=== PATIENT | female | born 1945 | race Caucasian/White ===

== ENCOUNTER 2021-12-02 11:47 | Emergency (ER) | payer MEDICARE, BC, SELFPAY ==
[2021-12-02] VITALS (19 sets, daily range): BP systolic 135–165; BP diastolic 58–95; PULSE 35–56; RESP 12–31; TEMP 37.6; O2SAT 95–100; BMI 35.5
[2021-12-02] MEDS: ATROPINE 1 MG/10 ML SYRINGE 0.5 MG IVP (12:10)
[2021-12-02 12:26] LABS: Basophils Absolute Auto 0.04 K/uL (0.00-0.30); Basophils Percent Auto 0.4 % (0.0-3.0); Eosinophils Percent Auto 3.1 % (0.0-7.0); Hematocrit 39.7 % (33.0-51.0); Hemoglobin* 12.8 gm/dL (12.0-16.0); Immature Granulocytes Abs Auto 0.02 K/uL (0.00-0.30); Lymphocytes Percent Auto 22.8 % (20-44); Mean Corpuscular HGB Conc 32 gm/dL (32-36); Mean Corpuscular Hemoglobin 32 pg (26-34); Mean Corpuscular Volume 99 fL (80-100); Monocytes Percent Auto 6.5 % (0.0-11.0); Neutrophils Absolute Auto 6.48 K/uL (1.7-7.0); Platelet Count* 289 K/uL (140-440); RDW Coefficient of Variation % 13.9 % (11.5-15.5); White Blood Count* 9.67 K/uL (4.50-11.00)
[2021-12-02 12:29] LABS: Troponin, Point-of-Care* 0.01 ng/ml (0.01-0.04)
[2021-12-02 12:41] LABS: Chloride* 98 mmol/L (96-114); Sodium* 133 mmol/L (135-149)
[2021-12-02 12:42] LABS: Potassium* 4.9 mmol/L (3.6-5.1); Slide Review Reflex No
[2021-12-02 12:44] LABS: Carbon Dioxide* 28 mmol/L (20-32); Creatinine* 1.5 mg/dL (0.5-1.5); Est. Creatinine Clearance* 28.94; Estimated Glomerular Filt Rate 35 ml/min
[2021-12-02 12:45] LABS: Blood Urea Nitrogen* 30 mg/dL (7-30); Calcium* 9.2 mg/dL (8.4-10.6); Glucose* 123 mg/dL (60-115)
[2021-12-02 12:53] LABS: INR 2.27 (0.91-1.10); Prothrombin Time 25.4 Seconds
[2021-12-02 12:54] LABS: NT Pro B Type NatriureticPept* 2510 PG/mL (0-450)
[2021-12-02 12:59] LABS: Troponin I* 0.08 ng/mL (0.01-0.04)
[2021-12-02] MEDS: ASPIRIN 81 MG TAB.CHEW 324 MG PO (13:19)
[2021-12-02 13:26] LABS: PCR FLU A Negative PCR FLU A (Negative); PCR FLU B Negative PCR FLU B (Negative)
[2021-12-02 13:42] LABS: SARS PCR* Negative SARS-CoV-2 (Negative)
--- NOTE | 2021-12-02 14:07 | ED.GENADULT ---
HPI - General Adult General Chief complaint: Chest Pain Stated complaint: 40 pulse, lightheaded Time Seen by Provider: 12/02/21 12:02 Source: patient Mode of arrival: ambulatory Limitations: no limitations History of Present Illness HPI narrative: 76-year-old female brought in today after she was found to have a pulse of 38 in the clinic. Patient states that for the last couple of days she has felt lightheaded and a little short of breath in the evenings but wakes up in the morning feeling fine. She states that it takes her a little bit more than her usual amount of energy to get going in the morning we once she gets going she is feels like she is back to her normal self. However today she woke up she still felt a little bit lightheaded and slightly short of breath. She denies any chest pain. She denies any recent illness. She denies fevers or chills. No nausea or vomiting. No diaphoresis. No weakness. Patient's past medical history significant for paroxysmal atrial fibrillation, hypertension, diabetes type 2, diastolic heart failure, obstructive sleep apnea. She is on Toprol XL , Coumadin and flecainide for her AFib. Related Data Home Medications Medication Instructions Recorded Confirmed flecainide 50 mg tablet 50 mg PO Q12H 12/02/21 12/02/21 gabapentin 100 mg capsule 200 mg PO .PM 12/02/21 12/02/21 metformin 500 mg tablet 500 mg PO DAILY 12/02/21 12/02/21 metoprolol succinate 100 mg 100 mg PO DAILY 12/02/21 12/02/21 tablet,extended release 24 hr omeprazole 20 mg capsule,delayed 20 mg PO BID 12/02/21 12/02/21 release pravastatin 80 mg tablet 80 mg PO DAILY 12/02/21 12/02/21 prednisone 5 mg tablet 7.5 mg PO DAILY 12/02/21 12/02/21 spironolactone 25 mg tablet 25 mg PO DAILY 12/02/21 12/02/21 warfarin 2.5 mg tablet 2.5 mg PO .T, Th, Sa, Long 12/02/21 12/02/21 warfarin 3 mg tablet 3 mg PO .M, W, F 12/02/21 12/02/21 Allergies Allergy/AdvReac Type Severity Reaction Status Date / Time allopurinol Allergy Unknown Verified 12/02/21 12:30 Sulfa (Sulfonamide Allergy Unknown Verified 12/02/21 12:30 Antibiotics) Review of Systems Status of ROS: Reports: 10 or more systems reviewed and unremarkable except as noted in History and below [facility] Social History Smoking Status: Former smoker Do you use any of these nicotine containing products: None Second hand tobacco smoke exposure: No How often do you have a drink containing alcohol: 4 or more times a week How many standard drinks containing alcohol do you have on a typical day: 1 or 2 How often do you have six or more drinks on one occasion: Never AUDIT-C Alcohol total score: 4 Non-prescribed substance use: denies use Exam Narrative: Exam Narrative: Well-nourished well-developed patient in no acute distress. Alert and oriented. Answers questions appropriately. Mood and affect are appropriate. Thoughts are goal oriented and rational. No tangential or magical thinking noted. Patient speaks in full sentences without needing to catch their breath. Patient is markedly bradycardic. Blood pressure is normal. Speech is not slurred or pressured. She is not sleepy. HEENT: Normocephalic atraumatic. Pupils are equally round reactive to light. Extraocular muscles are intact. Conjunctivae are moist without any icterus noted. Moist mucous membranes. Posterior pharynx is normal. Neck is soft without any lymphadenopathy or thyromegaly. No masses are appreciated. Cardiovascular: Heart is regular rate and rhythm S1 and S2 are present without any murmurs. Lungs: Clear to auscultation bilaterally no wheezes rhonchi or rales are appreciated. Patient takes deep breaths without any discomfort. Abdomen: Soft and nontender nondistended with normal bowel sounds. Extremities: Bilateral lower extremities are without edema. Normal DP and PT pulses. Skin: Well perfused without any obvious rashes. Const: Vital Signs, click to edit/add: Vital Signs - 24 hr 12/02/21 11:55 12/02/21 11:57 12/02/21 12:07 Temperature 99.6 F Pulse Rate [Right] 38 L 39 L 35 L Respiratory Rate 19 Blood Pressure [Le ft Upper Arm] 135/62 149/95 H Pulse Oximetry 97 97 95 Oxygen Delivery Me thod Room Air Room Air Room Air 12/02/21 12:20 12/02/21 12:30 12/02/21 12:45 Temperature Pulse Rate [Right] 45 L 41 L 40 L Respiratory Rate 16 31 H 19 Blood Pressure [Le ft Upper Arm] 138/63 141/62 H 141/68 H Pulse Oximetry 95 96 95 Oxygen Delivery Me thod Room Air Room Air Room Air 12/02/21 13:00 12/02/21 13:30 12/02/21 13:45 Temperature Pulse Rate [Right] 54 L 52 L 51 L Respiratory Rate 19 18 16 Blood Pressure [Le ft Upper Arm] 153/72 H 151/67 H 153/64 H Pulse Oximetry 97 97 98 Oxygen Delivery Me thod Room Air Room Air Room Air 12/02/21 13:15 12/02/21 14:00 12/02/21 14:15 Temperature Pulse Rate [Right] 53 L 51 L 56 L Respiratory Rate 21 16 20 Blood Pressure [Le ft Upper Arm] 156/67 H 157/70 H 152/89 H Pulse Oximetry 99 98 98 Oxygen Delivery Me thod Room Air Room Air Room Air Course Course Hospital Course: EKG was done right away which showed sinus bradycardia with an occasional fusion complex. Pacers were placed on the patient. IV was started and patient received 0.5 mg of atropine her pulse went up into the upper 40s. Repeat EKG showed bradycardia with a pulse of 48, and a junctional rhythm without obvious P-waves. She thought she was feeling a little bit better. Her point of care troponin was normal at 0.01 however her troponin I came back elevated at 0.08. Therefore patient received aspirin. Follow-up troponin came back normal at 0.01. I did speak to Dr. Haskins, cardiology at [facility], who recommended the patient be monitored until the Toprol XL and flecainide are out of her system. She did accept the patient for admission. Patient waited here while being monitored for approximately 4 and half hours while waiting for a bed and then was transferred without incident. Vital Signs Vital signs: Initial Vital Signs Temperature 99.6 F 12/02/21 11:55 Temperature Source Temporal Artery Scan 12/02/21 11:55 Pulse Rate 38 L 12/02/21 11:55 Blood Pressure Position Supine 12/02/21 11:55 Pulse Oximetry 97 12/02/21 11:55 Oxygen Delivery Method 12/02/21 11:55 Vital Signs Temperature 99.6 F 12/02/21 11:55 Pulse Rate 38 L 12/02/21 11:55 Pulse Oximetry 97 12/02/21 11:55 Oxygen Delivery Method 12/02/21 11:55 Temperature 99.6 F 12/02/21 11:55 Pulse Rate 56 L 12/02/21 14:15 Respiratory Rate 20 12/02/21 14:15 Blood Pressure 152/89 H 12/02/21 14:15 Pulse Oximetry 98 12/02/21 14:15 Oxygen Delivery Method 12/02/21 14:15 Medical Decision Making MDM Narrative Medical decision making narrative: Bradycardia. Mildly symptomatic upon presentation. Patient transferred to [facility]. Medical Records Medical records reviewed: Yes I reviewed the patient's medical records Lab Data Lab results reviewed: Yes I reviewed the patient's lab results Labs: Lab Results 12/02/21 12/02/21 12/02/21 Range/Units 12:09 12:09 12:09 WBC 9.67 (4.50-11.00) K/uL RBC 4.00 (4.00-5.20) m/uL Hgb 12.8 (12.0-16.0) gm/dL Hct 39.7 (33.0-51.0) % MCV 99 (80-100) fL MCH 32 (26-34) pg MCHC 32 (32-36) gm/dL RDW Coeff of Dom 13.9 (11.5-15.5) % Plt Count 289 (140-440) K/uL Neut % (Auto) 67.0 (42.0-72.0) % Lymph % (Auto) 22.8 (20-44) % Rice % (Auto) 6.5 (0.0-11.0) % Eos % (Auto) 3.1 (0.0-7.0) % Baso % (Auto) 0.4 (0.0-3.0) % Neut # (Auto) 6.48 (1.7-7.0) K/uL Lymph # (Auto) 2.20 (0.90-2.90) K/uL Rice # (Auto) 0.60 (0.00-0.90) K/UL Eos # (Auto) 0.30 (0.00-0.50) K/uL Baso # (Auto) 0.04 (0.00-0.30) K/uL Abs Immat Gran (auto) 0.02 (0.00-0.30) K/uL INR 2.27 H (0.91-1.10) Sodium 133 L (135-149) mmol/L Potassium 4.9 (3.6-5.1) mmol/L Chloride 98 (96-114) mmol/L Carbon Dioxide 28 (20-32) mmol/L BUN 30 (7-30) mg/dL Creatinine 1.5 (0.5-1.5) mg/dL Estimated Creat Clear 28.94 Estimated GFR 35 ml/min Glucose 123 H (60-115) mg/dL Calcium 9.2 (8.4-10.6) mg/dL Troponin I 0.08 H* (0.01-0.04) ng/mL NT-Pro-B Natriuret Pep 2510 H (0-450) PG/mL TSH (0.270-4.20) uIU/mL SARS-CoV-2 (PCR) (Negative) Influenza Type A (PCR) (Negative) Influenza Type B (PCR) (Negative) POC Troponin I (0.01-0.04) ng/ml 12/02/21 12/02/21 12/02/21 Range/Units 12:09 12:10 12:19 WBC (4.50-11.00) K/uL RBC (4.00-5.20) m/uL Hgb (12.0-16.0) gm/dL Hct (33.0-51.0) % MCV (80-100) fL MCH (26-34) pg MCHC (32-36) gm/dL RDW Coeff of Dom (11.5-15.5) % Plt Count (140-440) K/uL Neut % (Auto) (42.0-72.0) % Lymph % (Auto) (20-44) % Rice % (Auto) (0.0-11.0) % Eos % (Auto) (0.0-7.0) % Baso % (Auto) (0.0-3.0) % Neut # (Auto) (1.7-7.0) K/uL Lymph # (Auto) (0.90-2.90) K/uL Rice # (Auto) (0.00-0.90) K/UL Eos # (Auto) (0.00-0.50) K/uL Baso # (Auto) (0.00-0.30) K/uL Abs Immat Gran (auto) (0.00-0.30) K/uL INR (0.91-1.10) Sodium (135-149) mmol/L Potassium (3.6-5.1) mmol/L Chloride (96-114) mmol/L Carbon Dioxide (20-32) mmol/L BUN (7-30) mg/dL Creatinine (0.5-1.5) mg/dL Estimated Creat Clear Estimated GFR ml/min Glucose (60-115) mg/dL Calcium (8.4-10.6) mg/dL Troponin I (0.01-0.04) ng/mL NT-Pro-B Natriuret Pep (0-450) PG/mL TSH 1.760 (0.270-4.20) uIU/mL SARS-CoV-2 (PCR) Negative SARS-CoV-2 (Negative) Influenza Type A (PCR) Negative PCR FLU A (Negative) Influenza Type B (PCR) Negative PCR FLU B (Negative) POC Troponin I 0.01 (0.01-0.04) ng/ml 12/02/21 Range/Units 13:55 WBC (4.50-11.00) K/uL RBC (4.00-5.20) m/uL Hgb (12.0-16.0) gm/dL Hct (33.0-51.0) % MCV (80-100) fL MCH (26-34) pg MCHC (32-36) gm/dL RDW Coeff of Dom (11.5-15.5) % Plt Count (140-440) K/uL Neut % (Auto) (42.0-72.0) % Lymph % (Auto) (20-44) % Rice % (Auto) (0.0-11.0) % Eos % (Auto) (0.0-7.0) % Baso % (Auto) (0.0-3.0) % Neut # (Auto) (1.7-7.0) K/uL Lymph # (Auto) (0.90-2.90) K/uL Rice # (Auto) (0.00-0.90) K/UL Eos # (Auto) (0.00-0.50) K/uL Baso # (Auto) (0.00-0.30) K/uL Abs Immat Gran (auto) (0.00-0.30) K/uL INR (0.91-1.10) Sodium (135-149) mmol/L Potassium (3.6-5.1) mmol/L Chloride (96-114) mmol/L Carbon Dioxide (20-32) mmol/L BUN (7-30) mg/dL Creatinine (0.5-1.5) mg/dL Estimated Creat Clear Estimated GFR ml/min Glucose (60-115) mg/dL Calcium (8.4-10.6) mg/dL Troponin I < 0.01 L (0.01-0.04) ng/mL NT-Pro-B Natriuret Pep (0-450) PG/mL TSH (0.270-4.20) uIU/mL SARS-CoV-2 (PCR) (Negative) Influenza Type A (PCR) (Negative) Influenza Type B (PCR) (Negative) POC Troponin I (0.01-0.04) ng/ml ECG Data Attestation: I personally reviewed and interpreted this ECG as follows: (Sinus bradycardia with junctional rhythm.) Critical Care Time Critical Care Time Total Critical Care Time in Minutes: 90 Discharge Plan Discharge Clinical Impression: Bradycardia Patient Disposition: Xfer [facility] Discharge Location: [facility] Condition: Stable Prescriptions: No Action flecainide 50 mg tablet 50 mg PO Q12H Label Comments: TAKE ONE TABLET BY MOUTH EVERY TWELVE HOURS gabapentin 100 mg capsule 200 mg PO .PM Label Comments: TAKE TWO CAPSULE BY MOUTH DAILY AT BEDTIME metformin 500 mg tablet 500 mg PO DAILY Label Comments: TAKE ONE TABLET BY MOUTH ONE TIME DAILY with evening meal metoprolol succinate 100 mg tablet extended release 24 hr 100 mg PO DAILY Label Comments: TAKE ONE TABLET BY MOUTH ONE TIME DAILY omeprazole 20 mg capsule,delayed release(DR/EC) 20 mg PO BID Label Comments: TAKE ONE CAPSULE BY MOUTH ONE TIME DAILY BEFORE MEALS prednisone 5 mg tablet 7.5 mg PO DAILY Label Comments: TAKE ONE TABLET BY MOUTH ONE TIME DAILY WITH FOOD spironolactone 25 mg tablet 25 mg PO DAILY Label Comments: TAKE ONE TABLET BY MOUTH EVERY DAY IN THE MORNING. pravastatin 80 mg tablet 80 mg PO DAILY Label Comments: TAKE ONE TABLET (80 MG) BY MOUTH ONE TIME DAILY AT BEDTIME warfarin 3 mg tablet 3 mg PO .M, W, F Label Comments: take 1 tablet by mouth once daily on mondays, wednesdays, and fridays. take 2.5 mg tablets all other days or as directed. warfarin 2.5 mg tablet 2.5 mg PO ., , , Long Label Comments: take 1 tablet by mouth once daily on tuesdays, , saturdays, and sundays. take as instructed by nursing staff after inr monitoring. Follow Up/Referrals: Casi Kyle MD [Primary Care Provider] - Stand Alone Forms: [facility] Info Instructions
--- NOTE | 2021-12-02 14:25 | ED.NURSE ---
Report called to [facility] RN.
[2021-12-02 14:59] LABS: Troponin I* < 0.01 ng/mL (0.01-0.04)
== END 2021-12-02 16:20 | disposition short-term general hospital (02) ==
PROVIDERS: Emergency Provider Family Medicine; PCP Internal Medicine
DX: R00.1 Bradycardia, unspecified (principal)
CPT/HCPCS: 36415; 80048; 83880; 84443; 84484; 85025; 85610; 87502; 87635; 93005; 99285; 99291; A9270; J0461

== ENCOUNTER 2021-12-02 16:16 | Outpatient (CLI) | payer MEDICARE, BC, SELFPAY | END 2021-12-02 16:17 | disposition home or self-care (01) | LOC: AMB 12-16 08:31 | PROVIDERS: PCP Internal Medicine; Visit Provider Family Medicine | DX: I49.9 Cardiac arrhythmia, unspecified (principal); R03.0 Elevated blood-pressure reading, without diagnosis of hypertension; R42 Dizziness and giddiness | CPT/HCPCS: A0425; A0426 ==

== ENCOUNTER 2021-12-20 08:17 | Outpatient (CLI) | payer MEDICARE, BC, SELFPAY ==
--- NOTE | 2021-12-20 08:30 | CRLHL7_ITS ---
For Patients: As a result of the Century Cures Act, medical imaging exams and procedure reports are released immediately into your electronic medical record. You may view this report before your referring provider. If you have questions, please contact your health care provider. MYOCARDIAL PERFUSION SCAN - [facility] ??? [facility] CLINICAL HISTORY: 76-year-old female. Paroxysmal atrial fibrillation. CHF. Hyperlipidemia. Type 2 diabetes. Stage 3 chronic kidney disease. Former smoker. 220 pounds. TECHNIQUE: Resting SPECT and stress gated SPECT with wall motion and ejection fraction) Stress: Pharmacologic ??? Lexiscan (0.4 mg) IV Dose (Stress/Rest): 32.0 mCi/8.8 mCi Tc-99m Sestamibi IV Comparison: None FINDINGS: There is good uptake of activity by the left ventricle. No left ventricular enlargement is noted. There is mild soft tissue attenuation. No other significant fixed or reversible defects are identified. The gated images demonstrate a normal left ventricular ejection fraction of 63 percent. No regional wall motion abnormalities are identified. IMPRESSION: 1. There is no evidence of significant myocardial ischemia or infarction. 2. Normal left ventricular ejection fraction of 63 percent. This study was jointly reviewed by radiology and cardiology. DORON ESPOSITO M.D. [employer] [email or web address] JAY REINA M.D. [employer], Department of Cardiology PABLO/Dictated by: Doron Esposito MD @ 12/20/2021 1:40:00 PM (Electronically Signed)
--- NOTE | 2021-12-20 10:02 | PM.ST ---
Stress Test Note Date Time Seen by Provider: 10:20 Date Seen: 12/20/21 Date of test: 12/20/21 Providers Referring provider: Carmina Holloway Primary care provider: Casi Kyle Stress test physician: Daily Nazario Stress Test Note Stress test ordered: Lexiscan Indication for test: Paroxysmal atrial fibrillation Stress test medicine: Lexiscan Results discussion: Patient was consented on Lexiscan. She had minimal symptoms with medication fusion, slight flushing. She had a non walking Lexiscan protocol. There were no arrhythmias, no significant ischemic changes. Patient did have some hypertensive changes during the stress test without symptomatology. Impression: Subjectively negative, objectively negative EKG portion of this Lexiscan. Follow up suggested: She will have her post-stress images done and then discharge to home. She will wait from her ordering physician for formal report. The nuclear medicine images need to couple this for a full formal diagnostic test.
[2021-12-20] MEDS: REGADENOSON 0.4 MG/5 ML SYRINGE IVP (10:57)
[2021-12-20] MEDS: SODIUM CHLORIDE 0.9 % (FLUSH) 10 ML SYRINGE IVF (10:57)
== END 2021-12-20 08:18 | disposition home or self-care (01) ==
PROVIDERS: PCP Internal Medicine; Visit Provider Family Medicine
DX: I48.0 Paroxysmal atrial fibrillation (principal)
CPT/HCPCS: 78452; 93016; 93017; A9500; J2785

== ENCOUNTER 2022-01-01 21:14 | Outpatient (CLI) | payer MEDICARE, BC, SELFPAY | END 2022-01-01 21:15 | disposition home or self-care (01) | LOC: AMB 01-17 12:46 | PROVIDERS: PCP Internal Medicine; Visit Provider Family Medicine | DX: R55 Syncope and collapse (principal); I48.91 Unspecified atrial fibrillation; R42 Dizziness and giddiness | CPT/HCPCS: A0425; A0427 ==

== ENCOUNTER 2022-01-01 21:44 | Emergency (ER) | payer MEDICARE, BC, SELFPAY ==
[2022-01-01] VITALS (18 sets, daily range): BP systolic 100–159; BP diastolic 61–99; PULSE 99–168; RESP 18–27; TEMP 36.9; O2SAT 95–100
--- NOTE | 2022-01-01 21:46 | ED.GENADULT ---
HPI - General Adult General Time Seen by Provider: 21:46 Date Seen: 01/01/22 Chief complaint: Arrhythmia/Palpitations Stated complaint: Afib Time Seen by Provider: 01/01/22 21:46 Source: patient and EMS Mode of arrival: EMS Limitations: no limitations History of Present Illness HPI narrative: 76-year-old female who comes in today with palpitations. Patient was seen about a month ago with bradycardia and at that time had been on Toprol on flecainide, was transferred to [facility] where those medications were stopped. She has been doing well until a couple hours ago when she developed palpitations and chest tightness which she associates with her atrial fibrillation. She denies nausea, vomiting, new medications, other concerns. No shortness of breath or lightheadedness. Patient is on Coumadin, last INR was about a month ago when she was here in the emergency department. Related Data Home Medications Medication Instructions Recorded Confirmed flecainide 50 mg tablet 50 mg PO Q12H 12/02/21 12/02/21 gabapentin 100 mg capsule 200 mg PO .PM 12/02/21 12/02/21 metformin 500 mg tablet 500 mg PO DAILY 12/02/21 12/02/21 omeprazole 20 mg capsule,delayed 20 mg PO BID 12/02/21 12/02/21 release pravastatin 80 mg tablet 80 mg PO DAILY 12/02/21 12/02/21 prednisone 5 mg tablet 7.5 mg PO DAILY 12/02/21 12/02/21 spironolactone 25 mg tablet 25 mg PO DAILY 12/02/21 12/02/21 warfarin 2.5 mg tablet 2.5 mg PO .T, Th, Sa, Long 12/02/21 12/02/21 warfarin 3 mg tablet 3 mg PO .M, W, F 12/02/21 12/02/21 Previous Rx's Medication Instructions Recorded flecainide 50 mg tablet 50 mg PO Q12H #60 tabs 01/02/22 metoprolol succinate 25 mg 12.5 mg PO DAILY #30 tabs 01/02/22 tablet,extended release 24 hr Allergies Allergy/AdvReac Type Severity Reaction Status Date / Time allopurinol Allergy Unknown Verified 12/02/21 12:30 Sulfa (Sulfonamide Allergy Unknown Verified 12/02/21 12:30 Antibiotics) Review of Systems Status of ROS: Reports: 10 or more systems reviewed and unremarkable except as noted in History and below [facility] Social History Smoking Status: Never smoker Do you use any of these nicotine containing products: None Second hand tobacco smoke exposure: No How often do you have a drink containing alcohol: 4 or more times a week How many standard drinks containing alcohol do you have on a typical day: 1 or 2 How often do you have six or more drinks on one occasion: Never AUDIT-C Alcohol total score: 4 Non-prescribed substance use: denies use Exam Narrative: Exam Narrative: General: Well-developed and well-nourished, no acute distress Head: Atraumatic and normocephalic Eyes: Pupils are equal reactive, extraocular motions intact, conjunctiva clear ENT: External nose and ears are normal, posterior pharynx without erythema or exudate Neck: No midline cervical tenderness, full spontaneous range of motion the neck, trachea midline, no adenopathy Heart: Tachycardic and irregular Lungs: Clear to auscultation bilaterally without wheezes or crackles Abdomen: Soft, nontender, nondistended with active bowel sounds Musculoskeletal: No tenderness, deformity, or edema Neurologic: Awake, alert, and oriented x3, bilateral lower extremity weakness which is chronic, cranial nerves intact as tested Psych: Mood and affect are appropriate Skin: No rashes Const: Vital Signs, click to edit/add: Vital Signs - 24 hr 01/01/22 21:55 01/01/22 22:05 01/01/22 22:13 Temperature 98.4 F Pulse Rate 153 H 143 H Pulse Rate [Pulse Oximeter] 168 H Respiratory Rate 27 H Blood Pressure 119/85 Blood Pressure [Le ft Upper Arm] 119/85 Pulse Oximetry 95 96 97 Oxygen Delivery Me thod Room Air 01/01/22 22:14 01/01/22 22:15 01/01/22 22:17 Temperature Pulse Rate 124 H 128 H 125 H Pulse Rate [Pulse Oximeter] Respiratory Rate Blood Pressure 120/66 100/61 Blood Pressure [Le ft Upper Arm] Pulse Oximetry 95 96 97 Oxygen Delivery Me thod 01/01/22 22:32 01/01/22 22:34 01/01/22 22:46 Temperature Pulse Rate 128 H 129 H 132 H Pulse Rate [Pulse Oximeter] Respiratory Rate Blood Pressure 103/79 Blood Pressure [Le ft Upper Arm] Pulse Oximetry 96 97 97 Oxygen Delivery Me thod 01/01/22 23:02 01/01/22 23:05 01/01/22 23:22 Temperature Pulse Rate 125 H 131 H 146 H Pulse Rate [Pulse Oximeter] Respiratory Rate Blood Pressure 110/99 H 159/97 H Blood Pressure [Le ft Upper Arm] Pulse Oximetry 97 97 100 Oxygen Delivery Me thod 01/01/22 23:25 01/01/22 23:37 01/01/22 23:51 Temperature Pulse Rate 135 H 125 H 147 H Pulse Rate [Pulse Oximeter] Respiratory Rate 18 Blood Pressure 145/77 H 150/91 H Blood Pressure [Le ft Upper Arm] Pulse Oximetry 98 97 100 Oxygen Delivery Me thod 01/01/22 23:53 01/01/22 23:54 01/01/22 23:57 Temperature Pulse Rate 108 H 106 H 99 Pulse Rate [Pulse Oximeter] Respiratory Rate 26 H 23 21 Blood Pressure 129/80 129/69 Blood Pressure [Le ft Upper Arm] Pulse Oximetry 97 100 100 Oxygen Delivery Me thod 01/02/22 00:07 01/02/22 00:12 01/02/22 00:17 Temperature Pulse Rate 93 88 99 Pulse Rate [Pulse Oximeter] Respiratory Rate 16 18 Blood Pressure 112/67 121/67 119/77 Blood Pressure [Le ft Upper Arm] Pulse Oximetry 98 98 99 Oxygen Delivery Me thod Course Course Hospital Course: Patient seen and examined, prior records are reviewed. Differential diagnosis includes but not limited to atrial fibrillation, atrial flutter, SVT, electrolyte disturbance, medication reaction. Patient presents with palpitations and chest tightness consistent with prior episodes of atrial fibrillation. Monitor confirms atrial fibrillation. Last INR was a month ago. If INR is therapeutic, patient is a candidate for electrical cardioversion. While labs are pending, patient will be given Cardizem IV. Reevaluation(s) Reevaluation #1: INR is 2.96, remaining labs are reassuring. Consent for sedation and cardioversion signed. Time: 23:15 Reevaluation #2: Successful electrical cardioversion. Patient is maintaining sinus rhythm, waiting for call back from cardiology to discuss further management. Time: 00:22 Reevaluation #3: Care discussed with Dr. King of [facility] who recommends restarting flecainide 50 mg twice a day and metoprolol 25 mg daily. Patient has follow-up with Cardiology in 5 days. Time: 00:35 Vital Signs Vital signs: Initial Vital Signs Temperature 98.4 F 01/01/22 21:55 Temperature Source Oral 01/01/22 21:55 Pulse Rate 168 H 01/01/22 21:55 Respiratory Rate 27 H 01/01/22 21:55 Blood Pressure 119/85 01/01/22 21:55 Blood Pressure Mean 96 01/01/22 21:55 Blood Pressure Position Supine 01/01/22 21:55 Pulse Oximetry 95 01/01/22 21:55 Oxygen Delivery Method 01/01/22 21:55 Vital Signs Temperature 98.4 F 01/01/22 21:55 Pulse Rate 168 H 01/01/22 21:55 Respiratory Rate 27 H 01/01/22 21:55 Blood Pressure 119/85 01/01/22 21:55 Pulse Oximetry 95 01/01/22 21:55 Oxygen Delivery Method 01/01/22 21:55 Temperature 98.4 F 01/01/22 21:55 Pulse Rate 99 01/02/22 00:17 Respiratory Rate 18 01/02/22 00:12 Blood Pressure 119/77 01/02/22 00:17 Pulse Oximetry 99 01/02/22 00:17 Oxygen Delivery Method 01/01/22 21:55 Medical Decision Making Medical Records Medical records reviewed: Yes I reviewed the patient's medical records Lab Data Lab results reviewed: Yes I reviewed the patient's lab results Labs: Lab Results 01/01/22 01/01/22 01/01/22 Range/Units 22:17 22:17 22:17 WBC 12.98 H (4.50-11.00) K/uL RBC 4.55 (4.00-5.20) m/uL Hgb 14.4 (12.0-16.0) gm/dL Hct 44.5 (33.0-51.0) % MCV 98 (80-100) fL MCH 32 (26-34) pg MCHC 32 (32-36) gm/dL RDW Coeff of Dom 13.2 (11.5-15.5) % Plt Count 303 (140-440) K/uL Neut % (Auto) 89.3 H (42.0-72.0) % Lymph % (Auto) 7.2 L (20-44) % [place] % (Auto) 2.4 (0.0-11.0) % Eos % (Auto) 0.5 (0.0-7.0) % Baso % (Auto) 0.2 (0.0-3.0) % Neut # (Auto) 11.60 H (1.7-7.0) K/uL Lymph # (Auto) 0.90 (0.90-2.90) K/uL [place] # (Auto) 0.30 (0.00-0.90) K/UL Eos # (Auto) 0.10 (0.00-0.50) K/uL Baso # (Auto) 0.00 (0.00-0.30) K/uL Abs Immat Gran (auto) 0.05 (0.00-0.30) K/uL INR 2.96 H (0.91-1.10) Sodium 136 (135-149) mmol/L Potassium 4.9 (3.6-5.1) mmol/L Chloride 103 (96-114) mmol/L Carbon Dioxide 22 (20-32) mmol/L BUN 20 (7-30) mg/dL Creatinine 1.2 (0.5-1.5) mg/dL Estimated GFR 46 ml/min Glucose 232 H (60-115) mg/dL Calcium 9.5 (8.4-10.6) mg/dL NT-Pro-B Natriuret Pep 813 H (0-450) PG/mL POC Troponin I (0.01-0.04) ng/ml 01/01/22 Range/Units 22:17 WBC (4.50-11.00) K/uL RBC (4.00-5.20) m/uL Hgb (12.0-16.0) gm/dL Hct (33.0-51.0) % MCV (80-100) fL MCH (26-34) pg MCHC (32-36) gm/dL RDW Coeff of Dom (11.5-15.5) % Plt Count (140-440) K/uL Neut % (Auto) (42.0-72.0) % Lymph % (Auto) (20-44) % [place] % (Auto) (0.0-11.0) % Eos % (Auto) (0.0-7.0) % Baso % (Auto) (0.0-3.0) % Neut # (Auto) (1.7-7.0) K/uL Lymph # (Auto) (0.90-2.90) K/uL [place] # (Auto) (0.00-0.90) K/UL Eos # (Auto) (0.00-0.50) K/uL Baso # (Auto) (0.00-0.30) K/uL Abs Immat Gran (auto) (0.00-0.30) K/uL INR (0.91-1.10) Sodium (135-149) mmol/L Potassium (3.6-5.1) mmol/L Chloride (96-114) mmol/L Carbon Dioxide (20-32) mmol/L BUN (7-30) mg/dL Creatinine (0.5-1.5) mg/dL Estimated GFR ml/min Glucose (60-115) mg/dL Calcium (8.4-10.6) mg/dL NT-Pro-B Natriuret Pep (0-450) PG/mL POC Troponin I 0.02 (0.01-0.04) ng/ml Imaging Data Chest x-ray: Attestation: I have reviewed the pertinent imaging results. My impression: Negative chest x-ray Radiologist's impression: No acute cardiopulmonary process identified ECG Data Attestation: I personally reviewed and interpreted this ECG as follows: Prior ECG tracings: available for review Interpretation: Atrial fibrillation with rapid ventricular response rate 172, QTC 416, normal axis, diffuse ST and T-wave changes. Compared to prior, rate is increased in atrial fibrillation has replaced junctional rhythm, diffuse ST changes are new. Repeat EKG performed at 11:55 a.m. demonstrates sinus tachycardia rate 103, nonspecific T-wave changes, no acute ST elevations or depressions, normal intervals, normal axis, MT 136, QTC 432. Compared to prior of earlier today, sinus rhythm has replaced atrial fibrillation and previously seen diffuse ST changes have resolved. Discharge Plan Discharge Clinical Impression: Anticoagulated on Coumadin, Atrial fibrillation with rapid ventricular response Patient Disposition: Home, Self-Care Condition: Stable Instructions: A-fib (Atrial Fibrillation) (ED) Additional Instructions: Restart flecainide 50 mg twice a day. Also start metoprolol 25 mg daily. Follow-up with cardiology as scheduled. Activity Level: No Restrictions Discharge Diet: Heart Healthy (2 gm sodium, low fat) Prescriptions: New flecainide 50 mg tablet 50 mg PO Q12H Qty: 60 0RF metoprolol succinate 25 mg tablet extended release 24 hr 12.5 mg PO DAILY Qty: 30 0RF Discontinued metoprolol succinate 100 mg tablet extended release 24 hr 100 mg PO DAILY Label Comments: TAKE ONE TABLET BY MOUTH ONE TIME DAILY No Action flecainide 50 mg tablet 50 mg PO Q12H Label Comments: TAKE ONE TABLET BY MOUTH EVERY TWELVE HOURS gabapentin 100 mg capsule 200 mg PO .PM Label Comments: TAKE TWO CAPSULE BY MOUTH DAILY AT BEDTIME metformin 500 mg tablet 500 mg PO DAILY Label Comments: TAKE ONE TABLET BY MOUTH ONE TIME DAILY with evening meal omeprazole 20 mg capsule,delayed release(DR/EC) 20 mg PO BID Label Comments: TAKE ONE CAPSULE BY MOUTH ONE TIME DAILY BEFORE MEALS prednisone 5 mg tablet 7.5 mg PO DAILY Label Comments: TAKE ONE TABLET BY MOUTH ONE TIME DAILY WITH FOOD spironolactone 25 mg tablet 25 mg PO DAILY Label Comments: TAKE ONE TABLET BY MOUTH EVERY DAY IN THE MORNING. pravastatin 80 mg tablet 80 mg PO DAILY Label Comments: TAKE ONE TABLET (80 MG) BY MOUTH ONE TIME DAILY AT BEDTIME warfarin 3 mg tablet 3 mg PO .M, W, F Label Comments: take 1 tablet by mouth once daily on mondays, wednesdays, and fridays. take 2.5 mg tablets all other days or as directed. warfarin 2.5 mg tablet 2.5 mg PO ., , , Long Label Comments: take 1 tablet by mouth once daily on tuesdays, , saturdays, and sundays. take as instructed by nursing staff after inr monitoring. Follow Up/Referrals: Casi Kyle MD [Primary Care Provider] - Stand Alone Forms: [facility] Info Instructions Procedures Procedural Sedation Pre procedure diagnosis: Afib with RVR Post procedure diagnosis: Same Written consent by: patient Verification/time out: correct patient, correct site, correct procedure and time out performed Name of person perfmorming the procedure: Jeffy Abrams Sedation provider same as procedural provider: No Indication: other (electrical cardioversion) ASA Class: II Time of Last PO Intake: 16:00 Mallampati classification: III. soft palate and base of uvula visible Preparation: cardiac monitor technician applied, pulse oximeter, capnometry used, supplemental O2 applied, reversal agents at bedside, suction/airway equipment at bedside and IV secured Additional Procedures Procedure name: Electrical cardioversion Pre procedure diagnosis: Afib with RVR Post procedure diagnosis: Same Written consent by: patient Site marking: not applicable Verification/time out: correct patient, correct procedure and time out performed Specimen sent: No Conclusion: patient tolerated procedure Additional comments: Risks and benefits discussed with patient, consent signed. Procedural sedation per anesthsia. Synchronized shock at 100J delivered with conversion to sinus rhythm. Patient tolerated procedure well and recovered from anesthesia without incident.
--- NOTE | 2022-01-01 22:00 | CRLHL7_ITS ---
For Patients: As a result of the Century Cures Act, medical imaging exams and procedure reports are released immediately into your electronic medical record. You may view this report before your referring provider. If you have questions, please contact your health care provider. INDICATION: Palpitations. TECHNIQUE: AP portable chest. COMPARISON: Two-view chest March 13, 2017. FINDINGS: Clear lungs. Normal heart size and pulmonary vascularity. Normal included skeleton. Resolution of the minimal pleural effusions described previously. IMPRESSION: No acute cardiopulmonary process identified. Dictated by Daniel Goodson MD @ 01/01/2022 10:35:48 PM (Electronically Signed)
[2022-01-01] MEDS: dilTIAZem 5 MG/ML inj 10 MG IVP (22:10)
[2022-01-01 22:28] LABS: Basophils Percent Auto 0.2 % (0.0-3.0); Eosinophils Percent Auto 0.5 % (0.0-7.0); Hematocrit 44.5 % (33.0-51.0); Hemoglobin* 14.4 gm/dL (12.0-16.0); Immature Granulocytes Abs Auto 0.05 K/uL (0.00-0.30); Lymphocytes Percent Auto 7.2 % (20-44); Mean Corpuscular HGB Conc 32 gm/dL (32-36); Mean Corpuscular Hemoglobin 32 pg (26-34); Mean Corpuscular Volume 98 fL (80-100); Monocytes Percent Auto 2.4 % (0.0-11.0); Neutrophils Percent Auto 89.3 % (42.0-72.0); Platelet Count* 303 K/uL (140-440); RDW Coefficient of Variation % 13.2 % (11.5-15.5); Red Blood Count 4.55 m/uL (4.00-5.20); White Blood Count* 12.98 K/uL (4.50-11.00)
[2022-01-01 22:30] LABS: Slide Review Reflex No
[2022-01-01] MEDS: 0.9 % SODIUM CHLORIDE 500 ML 500 ML IV (22:36)
[2022-01-01 22:40] LABS: Troponin, Point-of-Care* 0.02 ng/ml (0.01-0.04)
[2022-01-01 22:41] LABS: Chloride* 103 mmol/L (96-114); Potassium* 4.9 mmol/L (3.6-5.1); Sodium* 136 mmol/L (135-149)
[2022-01-01 22:43] LABS: INR 2.96 (0.91-1.10); Prothrombin Time 31.2 Seconds
[2022-01-01 22:44] LABS: Blood Urea Nitrogen* 20 mg/dL (7-30); Carbon Dioxide* 22 mmol/L (20-32); Creatinine* 1.2 mg/dL (0.5-1.5); Estimated Glomerular Filt Rate 46 ml/min; Glucose* 232 mg/dL (60-115)
[2022-01-01 22:45] LABS: Calcium* 9.5 mg/dL (8.4-10.6)
[2022-01-01 22:53] LABS: NT Pro B Type NatriureticPept* 813 PG/mL (0-450)
[2022-01-02] VITALS (7 sets, daily range): BP systolic 112–128; BP diastolic 67–77; PULSE 87–99; RESP 16–18; O2SAT 98–99
--- NOTE | 2022-01-02 | W.ANESCHARGE ---
Anesthesia Charges Start Date/Time Anesthesia Start Date: 01/01/22 Anesthesia Start Time: 23:39 Stop Date/Time Anesthesia Stop Date: 01/02/22 Anesthesia Stop Time: 00:01 Summary Emergency: Yes Extremes of Age: Over 68-CPT [id number]
[2022-01-02] MEDS: METOPROLOL SUCCINATE (XL) 25 MG TAB PO (01:11)
[2022-01-02] MEDS: FLECAINIDE ACETATE 50 MG TABLET PO (01:12)
== END 2022-01-02 01:15 | disposition home or self-care (01) ==
PROVIDERS: Emergency Provider Family Medicine; PCP Internal Medicine
DX: I48.20 Chronic atrial fibrillation, unspecified (principal); Z79.01 Long term (current) use of anticoagulants
CPT/HCPCS: 00410; 36415; 71045; 80048; 83880; 84484; 85025; 85610; 92960; 93005; 99100; 99140; 99156; 99285; A9270; J2704; J7120

== ENCOUNTER 2022-06-07 10:37 | Outpatient (RCR) | payer MEDICARE, BC, SELFPAY | END 2022-08-24 23:59 | disposition home or self-care (01) | PROVIDERS: PCP Internal Medicine; Visit Provider Psychiatry & Neurology Neurology | DX: R53.1 Weakness (principal); G62.9 Polyneuropathy, unspecified; Z74.09 Other reduced mobility; G20 Parkinson's disease; Z51.89 Encounter for other specified aftercare | CPT/HCPCS: 97110; 97162; 97530 ==

== ENCOUNTER 2022-06-13 14:23 | Outpatient (CLI) | payer MEDICARE, BC, SELFPAY ==
[2022-06-13 15:40] LABS: INR 3.48 (0.91-1.10); Prothrombin Time 36.6 Seconds
== END 2022-06-13 14:24 | disposition home or self-care (01) ==
LOC: INJ CL 14:25
PROVIDERS: PCP Internal Medicine; Visit Provider Family Medicine
DX: M17.11 Unilateral primary osteoarthritis, right knee (principal); M25.561 Pain in right knee; I48.20 Chronic atrial fibrillation, unspecified
CPT/HCPCS: 36415; 64454; 85610

== ENCOUNTER 2022-07-04 12:50 | Outpatient (CLI) | payer MEDICARE, BC, SELFPAY | END 2022-07-04 12:51 | disposition home or self-care (01) | PROVIDERS: PCP Internal Medicine; Visit Provider Family Medicine | DX: M17.11 Unilateral primary osteoarthritis, right knee (principal); G89.29 Other chronic pain; M25.561 Pain in right knee | CPT/HCPCS: 64624; J0702; J2250; J3010 ==

== ENCOUNTER 2022-07-11 10:27 | Outpatient (CLI) | payer MEDICARE, BC, SELFPAY | END 2022-07-11 10:28 | disposition home or self-care (01) | LOC: INJ CL 10:27 | PROVIDERS: PCP Internal Medicine; Visit Provider Family Medicine | DX: M16.11 Unilateral primary osteoarthritis, right hip (principal); M25.561 Pain in right knee | CPT/HCPCS: 20610; 77002; Q9966 ==

== ENCOUNTER 2022-07-14 00:30 | Outpatient (CLI) | payer MEDICARE, BC, SELFPAY | END 2022-07-14 00:31 | disposition home or self-care (01) | LOC: AMB 07:11 | PROVIDERS: PCP Internal Medicine; Visit Provider Family Medicine | DX: R06.02 Shortness of breath (principal) | CPT/HCPCS: A0425; A0427 ==

== ENCOUNTER 2022-07-14 01:05 | Emergency (ER) | payer MEDICARE, BC, SELFPAY ==
[2022-07-14] VITALS (18 sets, daily range): BP systolic 122–141; BP diastolic 57–63; PULSE 65–73; RESP 16–20; TEMP 36; O2SAT 85–96; BMI 33.9
--- NOTE | 2022-07-14 01:18 | ED.GENADULT ---
HPI - General Adult General Date Seen: 07/14/22 Chief complaint: Shortness of Breath/Dyspnea Stated complaint: Shortness of breath Time Seen by Provider: 07/14/22 01:12 Source: patient Mode of arrival: EMS Limitations: no limitations History of Present Illness HPI narrative: Patient is a 77-year-old female who has been working with her PCP over the past couple of months to treat stubborn acid reflux. She is now on Protonix and Pepcid both. She still wakes up on occasion with pain in her left chest that radiates up into her throat. Normally she just sits up for a few minutes this goes away. Tonight lasted for more than 30 minutes so the ambulance was called. She was very dyspneic initially and they started her on BiPAP. After albuterol neb her shortness of breath improved dramatically and she is able to be weaned from the BiPAP machine as soon as she arrived here. This spell is similar to numerous previous spells that she has had. The only difference was the duration. She has had no shortness of breath or cough recently. No fevers or chills. No black or bloody stools. Now that she has arrived and is feeling better she wishes she would have remained at home longer prior to calling EMS. Related Data Home Medications Medication Instructions Recorded Confirmed flecainide 50 mg tablet 50 mg PO Q12H 12/02/21 07/14/22 gabapentin 100 mg capsule 200 mg PO .PM 12/02/21 07/14/22 metformin 500 mg tablet 1,000 mg PO DAILY 12/02/21 07/14/22 pravastatin 80 mg tablet 80 mg PO DAILY 12/02/21 07/14/22 prednisone 5 mg tablet 5 mg PO DAILY 12/02/21 07/14/22 spironolactone 25 mg tablet 25 mg PO DAILY 12/02/21 07/14/22 warfarin 2.5 mg tablet 2.5 mg PO .T, Th, Sa, Long 12/02/21 07/14/22 warfarin 3 mg tablet 3 mg PO .M, W, F 12/02/21 12/02/21 famotidine 40 mg tablet 40 mg PO QPM 07/14/22 07/14/22 pantoprazole 40 mg tablet,delayed 40 mg PO DAILY 07/14/22 07/14/22 release Previous Rx's Medication Instructions Recorded flecainide 50 mg tablet 50 mg PO Q12H #60 tabs 01/02/22 metoprolol succinate 25 mg 12.5 mg PO DAILY #30 tabs 01/02/22 tablet,extended release 24 hr amoxicillin 500 mg capsule 2,000 mg PO ONCE #8 caps 06/23/22 Allergies Allergy/AdvReac Type Severity Reaction Status Date / Time allopurinol Allergy Unknown Verified 12/02/21 12:30 Sulfa (Sulfonamide Allergy Unknown Verified 12/02/21 12:30 Antibiotics) Review of Systems Narrative: Review of systems is outlined above otherwise noted to be negative. [facility] Medical History (Updated 07/14/22 @ 02:14 by Yassine Coto MD) Atrial fibrillation Diastolic heart failure GERD (gastroesophageal reflux disease) Hyperlipidemia Hypertension Obstructive sleep apnea Type 2 diabetes mellitus Social History Smoking Status: Former smoker Do you use any of these nicotine containing products: None Second hand tobacco smoke exposure: No How often do you have a drink containing alcohol: 4 or more times a week How many standard drinks containing alcohol do you have on a typical day: 1 or 2 How often do you have six or more drinks on one occasion: Never AUDIT-C Alcohol total score: 4 Non-prescribed substance use: denies use Exam Narrative: Exam Narrative: Vitals noted. HEENT: Conjunctiva clear. Posterior pharynx is clear without erythema or exudate. Neck is supple without adenopathy. Lungs: Clear to auscultation in all [place]. No wheezes, rales, rhonchi. Heart: Regular rate and rhythm without murmur. Abdomen: Soft and nontender. No guarding, rigidity, rebound. Bowel sounds are normal. No palpable masses. Extremities: 1+ pitting peripheral edema. Good distal pulses. Skin: No abnormalities noted of the exposed skin. Neurologic: Awake, alert, fully oriented. Neurologic exam is nonfocal. Const: Vital Signs, click to edit/add: Vital Signs - 24 hr 07/14/22 01:13 07/14/22 01:15 07/14/22 01:19 Temperature 96.8 F L Pulse Rate Pulse Rate [Pulse Oximeter] 71 Respiratory Rate 20 Blood Pressure Blood Pressure [Le ft Upper Arm] 138/62 Pulse Oximetry 91 85 L 93 Oxygen Delivery Me thod Room Air Room Air Nasal Cannula Oxygen Flow Rate 2 07/14/22 01:21 07/14/22 01:30 07/14/22 01:32 Temperature Pulse Rate 73 71 70 Pulse Rate [Pulse Oximeter] Respiratory Rate Blood Pressure 135/63 Blood Pressure [Le ft Upper Arm] Pulse Oximetry 94 94 94 Oxygen Delivery Me thod Oxygen Flow Rate 07/14/22 01:33 07/14/22 01:45 07/14/22 01:47 Temperature Pulse Rate 72 69 68 Pulse Rate [Pulse Oximeter] Respiratory Rate Blood Pressure 122/62 Blood Pressure [Le ft Upper Arm] Pulse Oximetry 93 95 94 Oxygen Delivery Me thod Nasal Cannula Oxygen Flow Rate 2 07/14/22 01:58 07/14/22 01:48 07/14/22 02:00 Temperature Pulse Rate 69 67 Pulse Rate [Pulse Oximeter] Respiratory Rate 16 Blood Pressure Blood Pressure [Le ft Upper Arm] Pulse Oximetry 95 96 93 Oxygen Delivery Me thod Nasal Cannula Oxygen Flow Rate 1 07/14/22 02:02 07/14/22 02:24 07/14/22 02:03 Temperature Pulse Rate 68 67 Pulse Rate [Pulse Oximeter] Respiratory Rate Blood Pressure 136/57 L Blood Pressure [Le ft Upper Arm] Pulse Oximetry 92 94 94 Oxygen Delivery Me thod Room Air Oxygen Flow Rate 07/14/22 02:15 07/14/22 02:16 Temperature Pulse Rate 66 65 Pulse Rate [Pulse Oximeter] Respiratory Rate Blood Pressure 141/60 H Blood Pressure [Le ft Upper Arm] Pulse Oximetry 95 94 Oxygen Delivery Me thod Oxygen Flow Rate Course Course Hospital Course: Patient is seen and examined. We were able to immediately transition her from BiPAP in the ambulance to 2 L nasal cannula oxygen. Labs are ordered. Her lungs are clear. Reevaluation(s) Reevaluation #1: Without any further intervention we were able to wean her to room air. Her lungs remain clear. No return of any acid reflux symptoms. She is frightened that this could happen again and we discussed having a home nebulizer available or possibly a prescription for metoclopramide might be options. She will follow-up with her PCP to discuss further. Vital Signs Vital signs: Initial Vital Signs Temperature 96.8 F L 07/14/22 01:13 Temperature Source Temporal Artery Scan 07/14/22 01:13 Pulse Rate 71 07/14/22 01:13 Respiratory Rate 20 07/14/22 01:13 Blood Pressure 138/62 07/14/22 01:13 Blood Pressure Mean 87 07/14/22 01:13 Pulse Oximetry 91 07/14/22 01:13 Oxygen Delivery Method 07/14/22 01:13 Vital Signs Temperature 96.8 F L 07/14/22 01:13 Pulse Rate 71 07/14/22 01:13 Respiratory Rate 20 07/14/22 01:13 Blood Pressure 138/62 07/14/22 01:13 Pulse Oximetry 91 07/14/22 01:13 Oxygen Delivery Method 07/14/22 01:13 Temperature 96.8 F L 07/14/22 01:13 Pulse Rate 65 07/14/22 02:16 Respiratory Rate 16 07/14/22 01:58 Blood Pressure 141/60 H 07/14/22 02:16 Pulse Oximetry 94 07/14/22 02:24 Oxygen Delivery Method 07/14/22 02:24 Oxygen Flow Rate 1 07/14/22 01:58 Medical Decision Making Lab Data Labs: Lab Results 07/14/22 07/14/22 Range/Units 01:51 01:51 WBC 12.65 H (4.50-11.00) K/uL RBC 4.05 (4.00-5.20) m/uL Hgb 13.0 (12.0-16.0) gm/dL Hct 40.7 (33.0-51.0) % MCV 101 H (80-100) fL MCH 32 (26-34) pg MCHC 32 (32-36) gm/dL RDW Coeff of Dom 13.4 (11.5-15.5) % Plt Count 346 (140-440) K/uL Neut % (Auto) 77.2 H (42.0-72.0) % Lymph % (Auto) 17.9 L (20-44) % [place] % (Auto) 3.6 (0.0-11.0) % Eos % (Auto) 0.1 (0.0-7.0) % Baso % (Auto) 0.0 (0.0-3.0) % Neut # (Auto) 9.80 H (1.7-7.0) K/uL Lymph # (Auto) 2.30 (0.90-2.90) K/uL [place] # (Auto) 0.50 (0.00-0.90) K/UL Eos # (Auto) 0.00 (0.00-0.50) K/uL Baso # (Auto) 0.00 (0.00-0.30) K/uL Sodium 132 L (135-149) mmol/L Potassium 5.0 (3.6-5.1) mmol/L Chloride 99 (96-114) mmol/L Carbon Dioxide 25 (20-32) mmol/L BUN 26 (7-30) mg/dL Creatinine 1.3 (0.5-1.5) mg/dL Estimated Creat Clear 32.85 Estimated GFR 42 ml/min Glucose 243 H (60-115) mg/dL Calcium 9.5 (8.4-10.6) mg/dL Troponin I 0.02 (0.01-0.04) ng/mL Discharge Plan Discharge Clinical Impression: Acute dyspnea, GERD (gastroesophageal reflux disease) Patient Disposition: Home, Self-Care Condition: Improved Additional Instructions: Continue current meds. Discuss with Dr Kyle the possibility of having a nebulizer at home to use in these situations or possibly a prescription for metoclopramide. Prescriptions: No Action flecainide 50 mg tablet 50 mg PO Q12H Label Comments: TAKE ONE TABLET BY MOUTH EVERY TWELVE HOURS gabapentin 100 mg capsule 200 mg PO .PM Label Comments: TAKE TWO CAPSULE BY MOUTH DAILY AT BEDTIME metformin 500 mg tablet 1,000 mg PO DAILY Label Comments: TAKE ONE TABLET BY MOUTH ONE TIME DAILY with evening meal prednisone 5 mg tablet 5 mg PO DAILY Label Comments: TAKE ONE TABLET BY MOUTH ONE TIME DAILY WITH FOOD spironolactone 25 mg tablet 25 mg PO DAILY Label Comments: TAKE ONE TABLET BY MOUTH EVERY DAY IN THE MORNING. pravastatin 80 mg tablet 80 mg PO DAILY Label Comments: TAKE ONE TABLET (80 MG) BY MOUTH ONE TIME DAILY AT BEDTIME warfarin 3 mg tablet 3 mg PO .M, W, F Label Comments: take 1 tablet by mouth once daily on mondays, wednesdays, and fridays. take 2.5 mg tablets all other days or as directed. warfarin 2.5 mg tablet 2.5 mg PO .T, , Sa, Long Label Comments: take 1 tablet by mouth once daily on tuesdays, , saturdays, and sundays. take as instructed by nursing staff after inr monitoring. flecainide 50 mg tablet 50 mg PO Q12H Qty: 60 0RF metoprolol succinate 25 mg tablet extended release 24 hr 12.5 mg PO DAILY Qty: 30 0RF famotidine 40 mg tablet 40 mg PO QPM pantoprazole 40 mg tablet,delayed release (DR/EC) 40 mg PO DAILY amoxicillin 500 mg capsule 2,000 mg PO ONCE Qty: 8 2RF Rx Instructions: Take 4 capsules (2000mg) 1 hour prior to dental appointment. Follow Up/Referrals: Casi Kyle MD [Primary Care Provider] - Stand Alone [facility] Info Instructions
[2022-07-14 01:59] LABS: Eosinophils Percent Auto 0.1 % (0.0-7.0); Hematocrit 40.7 % (33.0-51.0); Immature Granulocytes Pct Auto 1.2 %; Lymphocytes Percent Auto 17.9 % (20-44); Mean Corpuscular HGB Conc 32 gm/dL (32-36); Mean Corpuscular Hemoglobin 32 pg (26-34); Mean Corpuscular Volume 101 fL (80-100); Monocytes Percent Auto 3.6 % (0.0-11.0); Neutrophils Percent Auto 77.2 % (42.0-72.0); Platelet Count* 346 K/uL (140-440); RDW Coefficient of Variation % 13.4 % (11.5-15.5); Red Blood Count 4.05 m/uL (4.00-5.20); White Blood Count* 12.65 K/uL (4.50-11.00)
[2022-07-14 02:08] LABS: Slide Review Reflex No
[2022-07-14 02:11] LABS: Chloride* 99 mmol/L (96-114)
[2022-07-14 02:12] LABS: Sodium* 132 mmol/L (135-149)
[2022-07-14 02:14] LABS: Carbon Dioxide* 25 mmol/L (20-32); Creatinine* 1.3 mg/dL (0.5-1.5); Est. Creatinine Clearance* 32.85; Estimated Glomerular Filt Rate 42 ml/min
[2022-07-14 02:15] LABS: Blood Urea Nitrogen* 26 mg/dL (7-30); Calcium* 9.5 mg/dL (8.4-10.6); Glucose* 243 mg/dL (60-115)
[2022-07-14 02:26] LABS: Troponin I* 0.02 ng/mL (0.01-0.04)
== END 2022-07-14 02:46 | disposition home or self-care (01) ==
PROVIDERS: Emergency Provider Family Medicine; PCP Internal Medicine
DX: R06.00 Dyspnea, unspecified (principal); K21.9 Gastro-esophageal reflux disease without esophagitis
CPT/HCPCS: 36415; 80048; 84484; 85025; 93005; 99283; 99284